=== PATIENT | male | born 1965 | race Caucasian/White ===

== ENCOUNTER 2021-01-05 14:49 | Outpatient (REF) | payer MEDICARE, SELFPAY ==
--- NOTE | ~2021-01-05 | MM_ITS ---
EXAMINATION: MM DIAGNOSTIC DIGITAL BREAST TOMOSYNTHESIS, BILATERAL US DIAGNOSTIC ULTRASOUND BREAST, BILATERAL CLINICAL INFORMATION: Male age 55 with 6-8 months history left retroareolar fullness, recently decreased substantially. No discharge. No prior breast imaging. No known family history breast cancer. COMPARISON: None (current study represents baseline exam). TECHNIQUE: Digital breast tomosynthesis is performed in both the craniocaudal and mediolateral oblique views along with computer-aided detection (CAD). Synthesized 2D images are generated from the tomosynthesis. Ultrasound left breast is targeted to the retroareolar and periareolar region. Grayscale imaging and color Doppler are performed without and with harmonics. FINDINGS: There are scattered areas of fibroglandular density (ACR BI-RADS breast composition Category b). There is benign symmetric gynecomastia type pattern beneath both nipples, slightly greater on the right. There is no mass or architectural abnormality. No abnormal calcifications. The axilla and skin contours are unremarkable. Ultrasound demonstrates no cystic or solid mass or architectural abnormality. No hyperemia. No edema tracking in soft tissue planes. Results are discussed with the patient and his spouse at time of visit. MM/MM tomosynthesis diagnostic BI IMPRESSION: Mild to moderate bilateral subareolar gynecomastia. Unremarkable targeted left breast ultrasound. ASSESSMENT: BI-RADS 2: Benign RECOMMENDATION: Patient should be managed based on the clinical impression. If clinically indicated, further evaluation may be considered with surgical consult. Decision to proceed with biopsy should be based on clinical grounds and degree of clinical concern.
== END 2021-01-05 14:50 | disposition home or self-care (01) ==
LOC: HO.MAMMO 14:49
PROVIDERS: Visit Provider Nurse Practitioner Family
DX: N63.25 Unspecified lump in the left breast, overlapping quadrants (principal)
CPT/HCPCS: 76642; 77062; 77066

== ENCOUNTER 2021-01-16 08:31 | Outpatient (REF) | payer MEDICARE, SELFPAY ==
--- NOTE | ~2021-01-16 | US_ITS ---
EXAMINATION: US EXTRACRANIAL CAROTID DUPLEX, BILATERAL CLINICAL INFORMATION: This is a 55-year-old male with occlusion/stenosis of carotid artery. COMPARISON: Comparison is made to a previous study dated 05/25/2018 which demonstrated 50-79% right internal carotid artery stenosis and normal left internal carotid artery. TECHNIQUE: Real-time ultrasound and Doppler techniques (integrating B-mode 2-D vascular images, Doppler spectral analysis and color-flow Doppler imaging) were utilized to interrogate the extracranial carotid arteries, the vertebral arteries and proximal subclavian arteries bilaterally. The degree of stenosis is determined by criteria similar to NASCET. FINDINGS: Right Side: 1. There is minimal atherosclerotic plaque seen in the bifurcation/proximal ICA region. 2. The common carotid artery PSV proximally is 126 cm/s and distally 101 cm/s. 3. The proximal internal carotid artery velocities are 57 cm/s systolic and 20 cm/s diastolic. 4. The proximal external carotid artery PSV is 86 cm/s. 5. The vertebral artery shows antegrade flow. 6. The subclavian artery waveforms are normal. Left Side: 1. There is normal atherosclerotic plaque seen in the bifurcation/proximal ICA region. 2. The common carotid artery PSV proximally is 123 cm/s and distally 80 cm/s. 3. The proximal internal carotid artery velocities are 38 cm/s systolic and 10 cm/s diastolic. 4. The proximal external carotid artery PSV is 76 cm/s. 5. The vertebral artery shows antegrade flow. 6. The subclavian artery waveforms are normal. US/US carotid duplex BI IMPRESSION: 1. RIGHT: Minimal, non-hemodynamically significant stenosis of the proximal right internal carotid artery corresponding to a 0-49% stenosis by velocity criteria. 2. LEFT: Minimal, non-hemodynamically significant stenosis of the proximal left internal carotid artery corresponding to a 0-49% stenosis by velocity criteria. 3. There has been changes bilaterally when compared to the previous study as noted above. The stenosis appears less severe on the right but with minimal disease on the left now apparent. 4. A 2.3 x 0.7 x 1.7 cm lymph node is seen near the left bifurcation. A full dedicated neck ultrasound is recommended for further evaluation and characterization.
--- NOTE | ~2021-01-16 | US_ITS ---
EXAMINATION: US SCROTUM CLINICAL INFORMATION: Testicular pain, bilateral inguinal pain right lower quadrant/left lower quadrant. COMPARISON: None TECHNIQUE: A sonogram of the scrotum was performed assessing lindquist-scale appearance and color Doppler flow. Spectral Doppler analysis of the arterial and venous flow were performed in the testes bilaterally. FINDINGS: RIGHT: Right testicle measures 5.0 x 2.2 x 2.9 cm, volume 16.7 mL. No focal lesion seen except for echogenic microcalcifications. Spectral Doppler analysis of the arterial and venous flow is normal in the right testis. Right epididymal head is normal in size. There is a small epididymal cyst measuring 0.5 cm. No right varicocele is seen. There is a small hydrocele. Right epididymal Doppler flow is normal. LEFT: Left testicle measures 4.6 x 2.1 x 3.0 cm, volume 15.2 mL. There are small microcalcifications seen. Spectral Doppler analysis of the arterial and venous flow is normal in the left testis. Left epididymal head is normal in size. No left varicocele is seen. There is a small left hydrocele. Left epididymal Doppler flow is normal. Imaging over the left pelvis/inguinal region reveals no evidence of hernia. US/US scrotum IMPRESSION: Bilateral small hydroceles. Bilateral scrotal microlithiasis. No focal lesions seen. There is normal vascular flow seen to both testes and epididymis. Small right epididymal cyst. No evidence of hernia on limited imaging through the left inguinal region.
== END 2021-01-16 08:32 | disposition home or self-care (01) ==
LOC: HO.HMGCX 08:31
PROVIDERS: PCP Nurse Practitioner Family; Visit Provider Nurse Practitioner Family
DX: I65.29 Occlusion and stenosis of unspecified carotid artery (principal); R42 Dizziness and giddiness; N50.819 Testicular pain, unspecified; Z72.0 Tobacco use
CPT/HCPCS: 76870; 93880

== ENCOUNTER 2021-02-09 10:27 | Outpatient (REF) | payer MEDICARE, SELFPAY ==
--- NOTE | ~2021-02-09 | US_ITS ---
EXAMINATION: US SOFT TISSUE NECK CLINICAL INFORMATION: Enlarged lymph nodes COMPARISON: None TECHNIQUE: Ultrasound of the neck soft tissues is performed with high- frequency lindquist-scale imaging and color Doppler. FINDINGS: THYROID BED: Prior thyroidectomy. No residual thyroid tissue demonstrated in the thyroid bed. No cystic or solid nodules demonstrated in the thyroid bed. RIGHT NECK SOFT TISSUES: Scattered architecturally normal nodes are present. The nodes show normal fatty hilus, normal cortical thickness, and no cystic change or calcification. No abnormal color flow. The largest nodes are as follows: Level 1B: 2.3 x 0.5 x 0.9 cm. Normal leslie architecture. Level 1A: 1.1 x 0.5 x 0.6 cm. Normal leslie architecture. LEFT NECK SOFT TISSUES: Scattered architecturally normal nodes are present. The nodes show normal fatty hilus, normal cortical thickness, and no cystic change or calcification. No abnormal color flow. The largest nodes are as follows: Level 1A: 1.9 x 0.6 x 0.8 cm. Normal leslie architecture. US/US soft tiss head and/or neck IMPRESSION: Bilateral normal-appearing cervical lymph nodes.
--- NOTE | ~2021-02-09 | US_ITS ---
EXAMINATION: US pelvic, LIMITED/FOLLOW UP CLINICAL INFORMATION: Right lower quadrant pain COMPARISON: None TECHNIQUE: Limited imaging through bilateral inguinal canal was performed. FINDINGS: There is no evidence of inguinal hernia, mass of lymph nodes seen. No fluid collection either in the inguinal region. US/US pelvic limited IMPRESSION: Unremarkable limited abdomen ultrasound of the inguinal canal. No evidence of hernia.
--- NOTE | ~2021-02-09 | US_ITS ---
EXAMINATION: US ABDOMEN COMPLETE CLINICAL INFORMATION: Unspecified abdominal pain. COMPARISON: Ultrasound abdomen 05/25/2018. TECHNIQUE: Real-time imaging of the abdominal viscera. FINDINGS: PANCREAS: The head and body the pancreas are normal. The tail is not well visualized due to bowel gas. ABDOMINAL AORTA: The proximal, mid, and distal segments are normal in caliber. INFERIOR VENA CAVA: Visualized portions are normal. LIVER: The liver is normal in size. The liver contour is normal. Liver echotexture is slightly increased. No focal hepatic lesion. There is no intrahepatic biliary duct dilatation seen. GALLBLADDER: Normal. The gallbladder is physiologically distended without evidence of stones, sludge, polyps, wall thickening or pericholecystic fluid. COMMON BILE DUCT: Normal in caliber measuring 0.3 cm in diameter. RIGHT KIDNEY: The right kidney is abnormal in orientation or malrotated. No hydronephrosis. No renal calculi or focal parenchymal lesions. The kidney measures 10.9 cm in maximum dimension. LEFT KIDNEY: There is a 3.2 x 2.8 x 3.4 cm complex cyst with septations in the upper pole. No hydronephrosis or renal calculi. The kidney measures 12.8 cm in maximum dimension. SPLEEN: Normal. The spleen measures 10.1 cm in maximum dimension. FREE FLUID: None. US/US abdomen complete IMPRESSION: Slightly echogenic liver. Stable 3.2 x 2.8 x 3.4 cm complex left renal cyst. Malrotated right kidney. Limited visualization of the tail of the pancreas.
== END 2021-02-09 10:28 | disposition home or self-care (01) ==
LOC: HO.HMGCX 10:27
PROVIDERS: PCP Nurse Practitioner Family; Visit Provider Nurse Practitioner Family
DX: R10.31 Right lower quadrant pain (principal); R10.32 Left lower quadrant pain; R59.1 Generalized enlarged lymph nodes
CPT/HCPCS: 76536; 76700; 76857

== ENCOUNTER 2021-06-27 14:17 | Outpatient (REF) | payer MEDICARE, SELFPAY ==
--- NOTE | ~2021-06-27 | XR_ITS ---
EXAMINATION: 1. Left hand. 2. Left forearm. CLINICAL INFORMATION: Fall. Pain. COMPARISON: None TECHNIQUE: 1. Left hand. 3 views 2. Left forearm. 2 views FINDINGS: 1. Left hand. No fracture. No dislocation. Bone and joint are normal. 2. Left forearm. There is no fracture. No dislocation. Bone and joint are normal. XR/XR hand wrist LT IMPRESSION: 1. Left hand. Normal left hand. 2. Left forearm. Normal left forearm.
--- NOTE | ~2021-06-27 | XR_ITS ---
EXAMINATION: 1. Left hand. 2. Left forearm. CLINICAL INFORMATION: Fall. Pain. COMPARISON: None TECHNIQUE: 1. Left hand. 3 views 2. Left forearm. 2 views FINDINGS: 1. Left hand. No fracture. No dislocation. Bone and joint are normal. 2. Left forearm. There is no fracture. No dislocation. Bone and joint are normal. XR/XR forearm LT 2V IMPRESSION: 1. Left hand. Normal left hand. 2. Left forearm. Normal left forearm.
== END 2021-06-27 14:18 | disposition home or self-care (01) ==
LOC: HO.HMGCX 14:17
PROVIDERS: PCP Nurse Practitioner Family; Visit Provider Physician Assistant Medical
DX: M25.532 Pain in left wrist (principal); M79.642 Pain in left hand; M79.632 Pain in left forearm; W10.8XXA Fall (on) (from) other stairs and steps, initial encounter
CPT/HCPCS: 73090; 73110; 73130